=== PATIENT | male | born 1990 | race Caucasian/White ===

== ENCOUNTER 2021-03-16 13:08 | Emergency (ER) | payer BC ==
[~2021-03-16] VITALS: Ht 198.1 cm; Wt 81.6 kg
--- NOTE | 2021-03-16 13:23 | NUR ---
urine collected and sent to the lab
[2021-03-16] MEDS ORDERED: ONDANSETRON HCL/PF 4 MG/2 ML VIAL ONE ×2 (13:25→14:23)
[2021-03-16] MEDS ORDERED: ONDANSETRON HCL/PF 4 MG/2 ML VIAL IVP ONE ×2 (13:30→14:30)
[2021-03-16] MEDS ORDERED: IV NS 0.9% 1,000 ML BAG IV ONE (13:30)
[2021-03-16 13:36] LABS: BASOPHILS # (AUTO) 0.1 K/uL (0.0-0.2); BASOPHILS % (AUTO) 0.8 % (0.0-2.0); EOSINOPHILS % (AUTO) 3.3 % (0.0-6.0); HEMATOCRIT 44 % (39-51); HEMOGLOBIN 14.6 g/dL (13.5-17.5); LYMPHOCYTES # (AUTO) 1.7 K/uL (0.8-4.8); LYMPHOCYTES % (AUTO) 20.6 % (20.0-44.0); MEAN CORPUSCULAR HGB CONC 33 g/dl (31.0-36.0); MEAN CORPUSCULAR VOLUME 91 fL (80-96); MONOCYTES # (AUTO) 0.6 K/uL (0.1-1.30); MONOCYTES % (AUTO) 7.2 % (2.0-12.0); NEUTROPHILS # (AUTO) 5.5 K/uL (1.8-8.9); NEUTROPHILS % (AUTO) 68.1 % (43.0-81.0); PLATELET COUNT (AUTO) 336 K/uL (150-450); RED BLOOD CELL COUNT(AUTO) 4.86 MIL/uL (4.5-6.0); WHITE BLOOD COUNT (AUTO) 8.1 K/uL (4.3-11.0)
[2021-03-16 13:39] LABS: BILIRUBIN,URINE SMALL (NEGATIVE); COLOR,URINE YELLOW (YELLOW); LEUKOCYTE ESTERASE ,URINE Negative (NEGATIVE); NITRITE, URINE Negative (NEGATIVE); PROTEIN,URINE 100 mg/dl (NEGATIVE); UGLUCOSE Negative (NEGATIVE); UROBILINOGEN,URINE 0.2 EU/dL (0.2)
[2021-03-16 13:43] LABS: BACTERIA,URINE Few /HPF (None Seen); SQUAMOUS EPITHELIAL CELL,UR Few /HPF (None Seen)
[2021-03-16 13:50] LABS: CALCIUM, SERUM 8.7 mg/dL (8.5-10.1); CREATININE 1.1 mg/dL (0.6-1.3); POTASSIUM 4.4 mmol/L (3.5-5.1)
[2021-03-16 13:56] LABS: ALBUMIN 4.4 g/dL (3.4-5.0); BILIRUBIN,DIRECT 0.1 mg/dL (0.0-0.2); BILIRUBIN,TOTAL 0.4 mg/dL (0.2-1.0)
--- NOTE | 2021-03-16 14:16 | NUR ---
THE PATIENT IS TAKEN TO CT
--- NOTE | 2021-03-16 14:21 | NUR ---
THE PATIENT IS BACK FROM CT
[2021-03-16] MEDS ORDERED: PANTOPRAZOLE 40 MG VIAL ONE (14:22)
[2021-03-16] MEDS ORDERED: KETOROLAC TROMETHAMINE INJ 30 MG/ML VIAL ONE (14:23)
[2021-03-16] MEDS ORDERED: HYDROMORPHONE 1 MG/1 ML DISP.SYRIN ONE (14:23)
[2021-03-16] MEDS ORDERED: HYDROMORPHONE INJ 2 MG/ML DISP.SYRIN IV ONE (14:30)
[2021-03-16] MEDS ORDERED: PANTOPRAZOLE 40 MG VIAL IV ONE (14:30)
[2021-03-16] MEDS ORDERED: KETOROLAC TROMETHAMINE INJ 30 MG/ML VIAL IV ONE (14:30)
[2021-03-16] MEDS ORDERED: IBUP-1957 PO (15:12)
[2021-03-16] MEDS ORDERED: TAMS-12 PO (15:12)
[2021-03-16] MEDS ORDERED: HYDR-3972 PO (15:12)
--- NOTE | 2021-03-16 15:32 | NUR ---
Patient discharged to home in stable condition. Written and verbal after care instructions given. Patient verbalizes understanding of instruction.
[2021-03-16 15:47] VITALS: BP 114/67
== END 2021-03-16 15:48 | disposition home or self-care (01) ==
LOC: ER 13:20
DX: N20.2 Calculus of kidney with calculus of ureter (principal)
CPT/HCPCS: 36415; 74176; 80048; 80076; 81001; 83690; 85025; 96361; 96374; 96375; 96376; 99284; C9113; J1170; J1885; J2405 ×2; J7030

== ENCOUNTER 2022-05-14 12:01 | Emergency (ER) | payer BC ==
[~2022-05-14] VITALS: Ht 198.1 cm; Wt 90.7 kg
[~2022-05-14 12:01] MED LIST: HYDR-3972 PO; IBUP-1957 PO; TAMS-12 PO
--- NOTE | 2022-05-14 12:05 | NUR ---
BIBS WANTS STD TEST,HAD UNPROTECTED SEX A MONTH AGO, C/O TESTICULAR REDNESS.
--- NOTE | 2022-05-14 12:30 | NUR ---
TRANSPORTATION DIRECTOR AT BEDSIDE
[2022-05-14] MEDS ORDERED: PENICILLIN G BENZATHINE 2.4 MMU/4 ML ML IM ONE ×2 (13:00→13:06)
[2022-05-14] MEDS ORDERED: CEFTRIAXONE 1 G VIAL IM ONE (13:00)
[2022-05-14] MEDS ORDERED: CEFTRIAXONE 500 MG VIAL ONE (13:05)
[2022-05-14] MEDS ORDERED: LIDOCAINE 1% INJ 50 ML MDV IJ ONE (13:09)
[2022-05-14] MEDS ORDERED: DOXY100C2 PO (13:20)
--- NOTE | 2022-05-14 13:45 | NUR ---
Patient discharged to home in stable condition. Written and verbal after care instructions given. Patient verbalizes understanding of instruction.
[2022-05-14 13:46] VITALS: BP 112/58
== END 2022-05-14 13:45 | disposition home or self-care (01) ==
LOC: ER 12:01
DX: Z11.3 Encounter for screening for infections with a predominantly sexual mode of transmission (principal); Z91.030 Bee allergy status; Z79.899 Other long term (current) drug therapy
CPT/HCPCS: 99284; 86592; 86593; 96372 ×2; 36415; 87806; 87491; 87591; J0558; J3490; J0696

== ENCOUNTER 2022-09-24 23:50 | Emergency (ER) | payer BC ==
[~2022-09-24] VITALS: Ht 198.1 cm; Wt 90.7 kg
[~2022-09-24 23:50] MED LIST changes: +DOXY100C2 PO
--- NOTE | 2022-09-25 00:58 | NUR ---
BIBSELF FROM S/P LAC TO L EYEBROW FROM S/P DOG BITE. -TDAP UNKNOWN. A/OX4. BREATHING EVEN AND UNLABORED. V/S STABLE.
--- NOTE | 2022-09-25 01:02 | NUR ---
EMT AT PT'S BEDSIDE TO CLEAN LAC TO L EYEBROW
--- NOTE | 2022-09-25 01:10 | NUR ---
Dr. Ratliff at bedside.
[2022-09-25] MEDS ORDERED: AMOX-430 PO (01:19)
[2022-09-25] MEDS ORDERED: AMOX/CLAVULANATE 875 MG TABLET ONE (01:20)
[2022-09-25] MEDS ORDERED: TDAP [DIPH/PERTUSSIS/TET] 0.5 ML VIAL IM ONE ×2 (01:20→01:30)
[2022-09-25] MEDS ORDERED: AMOX/CLAVULANATE 875 MG TABLET PO ONE (01:30)
--- NOTE | 2022-09-25 01:30 | NUR ---
Patient discharged to home in stable condition. Written and verbal after care instructions given. Patient verbalizes understanding of instruction.
[2022-09-25 01:39] VITALS: BP 125/75
== END 2022-09-25 01:40 | disposition home or self-care (01) ==
LOC: ER 23:52
DX: S01.112A Laceration without foreign body of left eyelid and periocular area, initial encounter (principal); Z60.2 Problems related to living alone; Z79.899 Other long term (current) drug therapy; W54.0XXA Bitten by dog, initial encounter; Y93.89 Activity, other specified; Y92.89 Other specified places as the place of occurrence of the external cause; Y99.8 Other external cause status
CPT/HCPCS: 99283; 90471; 90715; A6403